=== PATIENT | male | born 1985 | race Native Hawaiian/Other Pacific Islander ===

== ENCOUNTER 2021-02-16 10:02 | Emergency (ER) | payer BC, OTHER ==
[~2021-02-16] VITALS: Ht 182.9 cm; Wt 99.8 kg
[2021-02-16 10:19] VITALS: TEMP 98.8
[2021-02-16 11:05] VITALS: BP 151/94
== END 2021-02-16 11:08 | disposition home or self-care (01) ==
LOC: ED 10:02
DX: I10 Essential (primary) hypertension (principal); F17.290 Nicotine dependence, other tobacco product, uncomplicated; Z98.890 Other specified postprocedural states
CPT/HCPCS: 99281